=== PATIENT | male | born 1945 | race Caucasian/White ===

== ENCOUNTER 2020-05-24 11:55 | Inpatient (IN) ==
[2020-05-24] MEDS ORDERED: Calcium Carb (TUMS) 500 mg CHEW TAB PO PRN (17:45)
[2020-05-24] MEDS ORDERED: Dextrose 50% Syringe 50 ml 25 GM/50 ML SYRINGE IV PUSH PRN (17:52)
[2020-05-24] MEDS ORDERED: Dexamethasone IV 4 MG/ML VIAL 1 ml VIAL IV SLOW PU ONE (20:00)
[2020-05-24] MEDS: Heparin 5000 UNITS/ML 1 mL VIAL SUBCUT SCH (21:10)
[2020-05-24] MEDS ORDERED: Dexamethasone IV 4 MG/ML VIAL 1 ml VIAL IV SLOW PU SCH (22:00)
[2020-05-25] MEDS: Heparin 5000 UNITS/ML 1 mL VIAL SUBCUT SCH ×3 (05:42→22:32)
[2020-05-25 06:10] LABS: ABS Basophils 0.1 10^3/ul (0-0.2); ABS Lymphocytes 0.8 10^3/ul (1.0-4.8); ABS Neutrophils 12.3 10^3/ul (1.5-7.7); Hematocrit 31 % (42-52); Lymphocyte % 5.9 %; Mean Corpuscular HGB Conc 32 g/dL (31-36); Mean Corpuscular Hemoglobin 28 pg (27-31); Mean Corpuscular Volume 86 fL (80-94); Mean Platelet Volume 6.4 fL (7.4-10.4); Platelet Count 583 10^3/uL (150-450); Red Blood Count 3.64 10^6 /uL (4.18-5.48); Red Cell Distribution Width 16 % (10-15); White Blood Count 14.1 10^3/uL (3.5-10.8)
[2020-05-25 06:25] LABS: Activated Partial Thrombo Time 28.3 seconds (26.0-38.0); INR 1.23 (0.82-1.09)
[2020-05-25 06:28] LABS: Calcium 8.5 mg/dL (8.6-10.3); EGFR African American 87.7 (>60); EGFR Non-African American 72.5 (>60); Potassium 3.7 mmol/L (3.5-5.0)
[2020-05-25] MEDS: Dexamethasone IV 4 MG/ML VIAL 1 ml VIAL IV SLOW PU SCH ×3 (07:52→22:34)
[2020-05-25 12:18] LABS: Urine Appearance Clear; Urine Bilirubin Negative (Negative); Urine Blood Negative (Negative); Urine Color Yellow; Urine Glucose Negative (Negative); Urine Ketones Negative (Negative); Urine Nitrite Negative (Negative); Urine Protein Negative (Negative); Urine Specific Gravity 1.019 (1.010-1.030); Urine Urobilinogen Negative (Negative)
[2020-05-25] MEDS ORDERED: Albuterol 2.5mg/3 ml (0.083%) NEB.SOLN INH SCH (15:00)
[2020-05-25] MEDS ORDERED: Albuterol 2.5mg/3 ml (0.083%) NEB.SOLN INH PRN (16:26)
[2020-05-25] MEDS ORDERED: Insulin GLARGINE 100 un/ml 10 ml VIAL SUBCUT SCH (21:00)
[2020-05-26] MEDS: Heparin 5000 UNITS/ML 1 mL VIAL SUBCUT SCH ×3 (05:39→21:47)
[2020-05-26 08:10] LABS: Hematocrit 34 % (42-52); Hemoglobin 10.8 g/dL (14.0-18.0); Mean Corpuscular HGB Conc 32 g/dL (31-36); Mean Corpuscular Hemoglobin 27 pg (27-31); Mean Corpuscular Volume 86 fL (80-94); Mean Platelet Volume 6.5 fL (7.4-10.4); Platelet Count 625 10^3/uL (150-450); Red Blood Count 3.95 10^6 /uL (4.18-5.48); Red Cell Distribution Width 16 % (10-15); White Blood Count 14.3 10^3/uL (3.5-10.8)
[2020-05-26 08:12] LABS: ABS Lymphocytes 1.9 10^3/ul (1.0-4.8); ABS Monocytes 1.3 10^3/ul (0-0.8); Eosinophil % 0.3 %; Lymphocyte % 13.5 %
[2020-05-26 08:26] LABS: C Reactive Protein 26.99 mg/L (<8.01); Calcium 8.6 mg/dL (8.6-10.3); EGFR African American 87.7 (>60); EGFR Non-African American 72.5 (>60); Potassium 4.1 mmol/L (3.5-5.0)
[2020-05-26] MEDS: Pantoprazole VIAL 40 MG VIAL IV SCH (08:39)
[2020-05-26 09:12] LABS: INR 1.18 (0.82-1.09)
[2020-05-26] MEDS: ceFAZolin 1 GM ADVAN 1 GM in NS 0.9% 50 ML 50 ML IVPB SCH (16:56)
[2020-05-26] MEDS ORDERED: Insulin GLARGINE 100 un/ml 10 ml VIAL SUBCUT SCH (21:00)
[2020-05-26] MEDS: Insulin GLARGINE 100 un/ml 10 ml VIAL SUBCUT SCH (21:46)
[2020-05-27] MEDS: ceFAZolin 1 GM ADVAN 1 GM in NS 0.9% 50 ML 50 ML IVPB SCH ×2 (01:03→10:49)
[2020-05-27] MEDS: Pantoprazole VIAL 40 MG VIAL IV SCH ×2 (10:50→13:06)
[2020-05-27] MEDS ORDERED: Clindamycin 900 MG/D5W BAG 900 MG/50 ML BAG IVPB ONE (12:00)
[2020-05-27] MEDS ORDERED: Naloxone 0.4 mg VIAL 0.4 mg/ml 1 ml VIAL IV PRN (13:08)
[2020-05-27] MEDS ORDERED: fentaNYL 100 mcg/2 ml 50 MCG/ML VIAL IV PRN (13:08)
[2020-05-27] MEDS ORDERED: Ondansetron 4 mg VIAL 2 MG/ML 2 ml VIAL IV PRN (13:08)
[2020-05-27] MEDS ORDERED: HYDROmorphone 1 MG/1 ML SYRINGE IV PRN (13:08)
[2020-05-27] MEDS ORDERED: Regadenoson 0.4 MG/5 ML SYRINGE ONE (14:03)
[2020-05-27] MEDS ORDERED: Vancomycin 1,000 MG VIAL ONE (14:26)
[2020-05-27] MEDS ORDERED: Lidocaine 1% w EPI 1:200,000 SDV 30 ML VIAL ONE (14:26)
[2020-05-27] MEDS ORDERED: Thrombin 5,000 UNITS 1 APPLIC KIT - topical use - TOPICAL ONE (14:26)
[2020-05-27] MEDS ORDERED: Artificial Tear OPHTH.OINT 3.5 GM ONE (14:26)
[2020-05-27] MEDS ORDERED: Bacitracin INJECTION 50,000 UNITS ONE (14:27)
[2020-05-27] MEDS ORDERED: Bacitracin OINTMENT TUBE ONE ×2 (14:27→19:21)
[2020-05-27] MEDS ORDERED: Gelfoam Sponge SIZE 100 SPONGE ONE ×2 (14:27→14:58)
[2020-05-27] MEDS ORDERED: Clindamycin VIAL 150 MG/ML VIAL (600 MG) ONE (19:00)
[2020-05-27 19:47] LABS: Body Fluid Source Synovial Fluid
[2020-05-27] MEDS ORDERED: Morphine 2 MG/ML SYRINGE IV PRN (21:43)
[2020-05-27] MEDS ORDERED: NS 0.9% 1000 ml BAG 1,000 ML IV SCH (21:45)
[2020-05-27 22:35] LABS: Body Fluid Mono 6 %; Body Fluid Other Cells 2
[2020-05-27] MEDS: Insulin GLARGINE 100 un/ml 10 ml VIAL SUBCUT SCH (23:14)
[2020-05-27] MEDS: Dexamethasone IV 4 MG/ML VIAL 1 ml VIAL IV SLOW PU SCH (23:16)
[2020-05-27] MEDS: Acetaminophen IV 1000 MG/100ML IVPB SCH (23:18)
[2020-05-27] MEDS: Calcium/Vitamin D TAB 250/125 TAB PO SCH (23:26)
[2020-05-28] MEDS: Clindamycin 900 MG IVPREMIX- Q8H IVPB SCH ×3 (00:21→17:26)
[2020-05-28] MEDS: Orphenadrine Citrate INJ 30 mg/ml 2 ml VIAL (60 mg) IV SCH ×2 (00:22→10:22)
[2020-05-28] MEDS: Calcium/Vitamin D TAB 250/125 TAB PO SCH ×3 (06:00→21:24)
[2020-05-28] MEDS: Dexamethasone IV 4 MG/ML VIAL 1 ml VIAL IV SLOW PU SCH (06:00)
[2020-05-28 07:11] LABS: ABS Lymphocytes 1.1 10^3/ul (1.0-4.8); ABS Monocytes 0.8 10^3/ul (0-0.8); ABS Neutrophils 17.4 10^3/ul (1.5-7.7); Hematocrit 29 % (42-52); Hemoglobin 9.5 g/dL (14.0-18.0); Lymphocyte % 5.8 %; Mean Corpuscular HGB Conc 32 g/dL (31-36); Mean Corpuscular Hemoglobin 27 pg (27-31); Mean Corpuscular Volume 85 fL (80-94); Mean Platelet Volume 6.1 fL (7.4-10.4); Platelet Count 545 10^3/uL (150-450); Red Blood Count 3.48 10^6 /uL (4.18-5.48); Red Cell Distribution Width 16 % (10-15); White Blood Count 19.4 10^3/uL (3.5-10.8)
[2020-05-28 07:21] LABS: Activated Partial Thrombo Time 25.7 seconds (26.0-38.0); INR 1.16 (0.82-1.09)
[2020-05-28 07:26] LABS: BUN/Creatinine Ratio 27.4 (8-20); EGFR Non-African American 67.7 (>60); Potassium 4.7 mmol/L (3.5-5.0)
[2020-05-28] MEDS: ceFAZolin 1 GM ADVAN 1 GM in NS 0.9% 50 ML 50 ML IVPB SCH (07:34)
[2020-05-28] MEDS: Pantoprazole VIAL 40 MG VIAL IV SCH (08:57)
[2020-05-28] MEDS: Enoxaparin 40 MG/0.4 ML SYR SUBCUT SCH (08:57)
[2020-05-28] MEDS: Polyethylene Glycol 3350 17 GM PACKET PO SCH (08:58)
[2020-05-28] MEDS: Acetaminophen IV 1000 MG/100ML IVPB SCH ×2 (10:22→18:22)
[2020-05-28] MEDS: Insulin GLARGINE 100 un/ml 10 ml VIAL SUBCUT SCH (21:22)
[2020-05-29] MEDS: Clindamycin 900 MG IVPREMIX- Q8H IVPB SCH ×3 (00:16→16:08)
[2020-05-29] MEDS: Calcium/Vitamin D TAB 250/125 TAB PO SCH ×3 (05:05→20:54)
[2020-05-29 07:00] LABS: Activated Partial Thrombo Time 27.2 seconds (26.0-38.0); INR 1.09 (0.82-1.09)
[2020-05-29 07:01] LABS: Hematocrit 30 % (42-52); Hemoglobin 9.4 g/dL (14.0-18.0); Mean Corpuscular HGB Conc 32 g/dL (31-36); Mean Corpuscular Hemoglobin 27 pg (27-31); Mean Corpuscular Volume 86 fL (80-94); Mean Platelet Volume 6.6 fL (7.4-10.4); Platelet Count 539 10^3/uL (150-450); Red Blood Count 3.46 10^6 /uL (4.18-5.48); Red Cell Distribution Width 16 % (10-15)
[2020-05-29 07:09] LABS: EGFR African American 87.7 (>60); EGFR Non-African American 72.5 (>60); Potassium 3.6 mmol/L (3.5-5.0)
[2020-05-29] MEDS: Pantoprazole VIAL 40 MG VIAL IV SCH (08:18)
[2020-05-29] MEDS: Enoxaparin 40 MG/0.4 ML SYR SUBCUT SCH (08:19)
[2020-05-29] MEDS: Polyethylene Glycol 3350 17 GM PACKET PO SCH (08:20)
[2020-05-29 09:16] LABS: ABS Eosinophils 0.1 10^3/ul (0-0.6); ABS Lymphocytes 1.8 10^3/ul (1.0-4.8); ABS Monocytes 1.3 10^3/ul (0-0.8); ABS Neutrophils 13.7 10^3/ul (1.5-7.7); Eosinophil % 0.9 %; Lymphocyte % 10.6 %
[2020-05-29] MEDS: Insulin GLARGINE 100 un/ml 10 ml VIAL SUBCUT SCH (20:57)
[2020-05-30] MEDS: Clindamycin 900 MG IVPREMIX- Q8H IVPB SCH ×3 (00:45→16:33)
[2020-05-30] MEDS: Calcium/Vitamin D TAB 250/125 TAB PO SCH ×3 (05:29→21:28)
[2020-05-30 06:22] LABS: ABS Eosinophils 0.3 10^3/ul (0-0.6); ABS Lymphocytes 1.6 10^3/ul (1.0-4.8); ABS Monocytes 1.3 10^3/ul (0-0.8); ABS Neutrophils 12.4 10^3/ul (1.5-7.7); Eosinophil % 1.6 %; Hematocrit 28 % (42-52); Hemoglobin 9.2 g/dL (14.0-18.0); Lymphocyte % 10.1 %; Mean Corpuscular HGB Conc 33 g/dL (31-36); Mean Corpuscular Hemoglobin 28 pg (27-31); Mean Corpuscular Volume 85 fL (80-94); Mean Platelet Volume 6.3 fL (7.4-10.4); Platelet Count 525 10^3/uL (150-450); Red Cell Distribution Width 17 % (10-15); White Blood Count 15.6 10^3/uL (3.5-10.8)
[2020-05-30 06:30] LABS: Activated Partial Thrombo Time 28.5 seconds (26.0-38.0); INR 1.11 (0.82-1.09)
[2020-05-30 06:38] LABS: BUN/Creatinine Ratio 21.4 (8-20); Calcium 8.3 mg/dL (8.6-10.3); EGFR African American 132.3 (>60); EGFR Non-African American 109.4 (>60); Potassium 3.2 mmol/L (3.5-5.0)
[2020-05-30] MEDS: Enoxaparin 40 MG/0.4 ML SYR SUBCUT SCH (08:22)
[2020-05-30] MEDS: Polyethylene Glycol 3350 17 GM PACKET PO SCH (08:23)
[2020-05-30] MEDS ORDERED: KCL 20 MEQ/100 ML IVPREMIX 20 MEQ/100 ML BAG IV ONE (08:26)
[2020-05-30] MEDS ORDERED: Potassium Chlor 20 meq TAB.ER PO ONE (08:26)
[2020-05-30] MEDS: Insulin GLARGINE 100 un/ml 10 ml VIAL SUBCUT SCH (21:57)
[2020-05-30] MEDS: CMCS: Glimepiride 2 mg TAB (NF) PO SCH (21:57)
[2020-05-31] MEDS: Clindamycin 900 MG IVPREMIX- Q8H IVPB SCH ×2 (00:41→08:18)
[2020-05-31] MEDS: Calcium/Vitamin D TAB 250/125 TAB PO SCH ×3 (04:27→21:05)
[2020-05-31 05:58] LABS: Hematocrit 27 % (42-52); Hemoglobin 8.7 g/dL (14.0-18.0); Mean Corpuscular HGB Conc 32 g/dL (31-36); Mean Corpuscular Hemoglobin 27 pg (27-31); Mean Corpuscular Volume 86 fL (80-94); Mean Platelet Volume 6.4 fL (7.4-10.4); Platelet Count 470 10^3/uL (150-450); Red Cell Distribution Width 17 % (10-15); White Blood Count 16.2 10^3/uL (3.5-10.8)
[2020-05-31 06:04] LABS: ABS Eosinophils 0.3 10^3/ul (0-0.6); ABS Lymphocytes 1.5 10^3/ul (1.0-4.8); ABS Monocytes 1.8 10^3/ul (0-0.8); ABS Neutrophils 12.6 10^3/ul (1.5-7.7); Eosinophil % 1.7 %; Lymphocyte % 9.5 %
[2020-05-31] MEDS: Enoxaparin 40 MG/0.4 ML SYR SUBCUT SCH (08:19)
[2020-05-31] MEDS: CMCS: Glimepiride 2 mg TAB (NF) PO SCH ×2 (08:20→21:07)
[2020-05-31] MEDS: Polyethylene Glycol 3350 17 GM PACKET PO SCH (08:20)
[2020-05-31 09:23] LABS: BUN/Creatinine Ratio 12.1 (8-20); C Reactive Protein 207.83 mg/L (<8.01); Calcium 8.2 mg/dL (8.6-10.3); EGFR African American 88.7 (>60); EGFR Non-African American 73.3 (>60); Potassium 3.3 mmol/L (3.5-5.0)
[2020-05-31 12:03] LABS: C Reactive Protein 46.15 mg/L (<8.01)
[2020-05-31] MEDS ORDERED: Potassium Chlor 20 meq TAB.ER PO ONE (12:07)
[2020-05-31] MEDS: Insulin GLARGINE 100 un/ml 10 ml VIAL SUBCUT SCH (21:06)
[2020-06-01] MEDS: Calcium/Vitamin D TAB 250/125 TAB PO SCH ×3 (05:15→20:50)
[2020-06-01] MEDS: Enoxaparin 40 MG/0.4 ML SYR SUBCUT SCH (08:47)
[2020-06-01] MEDS: Sulfamethox/Trimethoprim DS TAB 800/160 mg PO SCH ×2 (08:47→20:50)
[2020-06-01] MEDS: CMCS: Glimepiride 2 mg TAB (NF) PO SCH ×2 (08:47→20:59)
[2020-06-01] MEDS: Polyethylene Glycol 3350 17 GM PACKET PO SCH (08:48)
[2020-06-01 10:28] LABS: Hematocrit 28 % (42-52); Mean Corpuscular HGB Conc 33 g/dL (31-36); Mean Corpuscular Hemoglobin 28 pg (27-31); Mean Corpuscular Volume 85 fL (80-94); Mean Platelet Volume 6.6 fL (7.4-10.4); Platelet Count 592 10^3/uL (150-450); Red Blood Count 3.24 10^6 /uL (4.18-5.48); Red Cell Distribution Width 17 % (10-15); White Blood Count 20.7 10^3/uL (3.5-10.8)
[2020-06-01 10:47] LABS: C Reactive Protein 255.57 mg/L (<8.01); Calcium 8.5 mg/dL (8.6-10.3); EGFR African American 96.5 (>60); EGFR Non-African American 79.8 (>60); Potassium 3.9 mmol/L (3.5-5.0)
[2020-06-01 11:34] LABS: ABS Basophils 0.1 10^3/ul (0-0.2); ABS Eosinophils 0.1 10^3/ul (0-0.6); ABS Lymphocytes 2.3 10^3/ul (1.0-4.8); ABS Neutrophils 16.3 10^3/ul (1.5-7.7); Eosinophil % 0.7 %; Lymphocyte % 11.2 %
[2020-06-01 14:35] LABS: Urine Appearance Clear; Urine Bilirubin Negative (Negative); Urine Blood 1+ (Negative); Urine Color Yellow; Urine Glucose Negative (Negative); Urine Ketones Negative (Negative); Urine Nitrite Negative (Negative); Urine Protein 1+(30 mg/dL) (Negative); Urine Specific Gravity 1.018 (1.010-1.030); Urine Urobilinogen Negative (Negative)
[2020-06-01 14:38] LABS: Urine Bacteria Absent (Absent); Urine Red Blood Cell Trace(0-2/hpf) (Absent); Urine White Blood Cell Absent (Absent)
[2020-06-01] MEDS: Insulin GLARGINE 100 un/ml 10 ml VIAL SUBCUT SCH (20:50)
[2020-06-02] MEDS: Calcium/Vitamin D TAB 250/125 TAB PO SCH ×3 (04:19→19:39)
[2020-06-02 04:37] LABS: Hematocrit 25 % (42-52); Mean Corpuscular HGB Conc 32 g/dL (31-36); Mean Corpuscular Hemoglobin 28 pg (27-31); Mean Corpuscular Volume 86 fL (80-94); Mean Platelet Volume 6.4 fL (7.4-10.4); Platelet Count 481 10^3/uL (150-450); Red Blood Count 2.89 10^6 /uL (4.18-5.48); Red Cell Distribution Width 16 % (10-15); White Blood Count 16.1 10^3/uL (3.5-10.8)
[2020-06-02 04:39] LABS: ABS Basophils 0.1 10^3/ul (0-0.2); ABS Eosinophils 0.2 10^3/ul (0-0.6); ABS Neutrophils 11.9 10^3/ul (1.5-7.7); Eosinophil % 1.2 %; Lymphocyte % 12.1 %
[2020-06-02 04:59] LABS: C Reactive Protein 259.22 mg/L (<8.01); Calcium 8.4 mg/dL (8.6-10.3); EGFR African American 87.7 (>60); EGFR Non-African American 72.5 (>60); Potassium 3.5 mmol/L (3.5-5.0)
[2020-06-02] MEDS: Polyethylene Glycol 3350 17 GM PACKET PO SCH (07:33)
[2020-06-02] MEDS: Sulfamethox/Trimethoprim DS TAB 800/160 mg PO SCH (08:07)
[2020-06-02] MEDS: Enoxaparin 40 MG/0.4 ML SYR SUBCUT SCH (08:08)
[2020-06-02] MEDS: CMCS: Glimepiride 2 mg TAB (NF) PO SCH ×2 (08:10→19:39)
[2020-06-02] MEDS: Insulin GLARGINE 100 un/ml 10 ml VIAL SUBCUT SCH (19:53)
[2020-06-03] MEDS: Calcium/Vitamin D TAB 250/125 TAB PO SCH (04:46)
[2020-06-03] MEDS: Polyethylene Glycol 3350 17 GM PACKET PO SCH (08:01)
[2020-06-03] MEDS: Enoxaparin 40 MG/0.4 ML SYR SUBCUT SCH (08:33)
[2020-06-03] MEDS: CMCS: Glimepiride 2 mg TAB (NF) PO SCH (08:33)
[2020-06-03 09:57] LABS: Hematocrit 25 % (42-52); Hemoglobin 8.2 g/dL (14.0-18.0); Mean Corpuscular HGB Conc 33 g/dL (31-36); Mean Corpuscular Hemoglobin 28 pg (27-31); Mean Corpuscular Volume 85 fL (80-94); Mean Platelet Volume 6.3 fL (7.4-10.4); Platelet Count 562 10^3/uL (150-450); Red Blood Count 2.92 10^6 /uL (4.18-5.48); Red Cell Distribution Width 16 % (10-15); White Blood Count 13.1 10^3/uL (3.5-10.8)
[2020-06-03 10:14] LABS: Anion Gap 9 mmol/L (2-11); Blood Urea Nitrogen 14 mg/dL (6-24); C Reactive Protein 184.56 mg/L (<8.01); CO2 Carbon Dioxide 24 mmol/L (22-32); Calcium 8.6 mg/dL (8.6-10.3); Chloride 100 mmol/L (101-111); EGFR African American 80.2 (>60); EGFR Non-African American 66.3 (>60); Glucose 106 mg/dL (70-100); Potassium 3.6 mmol/L (3.5-5.0); Sodium 133 mmol/L (135-145)
[2020-06-03 11:18] VITALS: BP 124/49
[2020-06-03 11:24] LABS: ABS Basophils 0.1 10^3/ul (0-0.2); ABS Eosinophils 0.1 10^3/ul (0-0.6); ABS Lymphocytes 0.9 10^3/ul (1.0-4.8); ABS Monocytes 1.4 10^3/ul (0-0.8); ABS Neutrophils 10.6 10^3/ul (1.5-7.7); Lymphocyte % 7.2 %
[2020-06-03 15:32] LABS: Iron 21 ug/dL (50-212); Transferrin 172 mg/dL (203-362)
[2020-06-03 15:33] LABS: % Iron Saturation 9 % (15-55); Total Iron Binding Capacity 241 mcg/dL (250-450); Unsaturated Iron Binding < 226 ug/dL
[2020-06-03 16:31] LABS: Ferritin 474.2 ng/mL (24-336)
[2020-06-03 16:35] LABS: Folate 15.27 ng/mL (>3.99)
[2020-06-06 13:12] LABS: Albumin 1.9 g/dL (3.4-4.7); Albumin/Globulin Ratio 0.56; Gamma Globulin 0.7 g/dL (0.6-1.6); Total Protein(PEP) 5.4 g/dL (6.3 - 7.9)
== END 2020-06-03 11:54 | DRG 29 ==
LOC: SSU 15:27
PROVIDERS: ADMIT Internal Medicine; ATTEND Hospitalist

== ENCOUNTER 2021-02-10 06:02 | Inpatient (IN) ==
[~2021-02-10 06:02] MED LIST: Buffered Lidocaine 1% SYRIN 1 ml INTRADERM ONE; Lactated Ringers 1000 ml BAG 1,000 ML IV SCH
[2021-02-10 06:52] LABS: Rapid COVID-19 Molecular Undetected (Undetected)
[2021-02-10] MEDS ORDERED: Vancomycin 1,000 MG VIAL ONE ×2 (07:15→08:19)
[2021-02-10] MEDS ORDERED: Bacitracin OINTMENT TUBE ONE (07:15)
[2021-02-10] MEDS ORDERED: ceFAZolin VIAL VIAL ONE ×2 (07:15→08:19)
[2021-02-10] MEDS ORDERED: Bupivacaine 0.5% SDV PF 30ML VIAL ONE (07:15)
[2021-02-10] MEDS ORDERED: Clindamycin 900 MG/D5W BAG 900 MG/50 ML BAG IVPB ONE (07:17)
[2021-02-10] MEDS ORDERED: fentaNYL 250 mcg/5 ml 50 MCG/ML 5 ml VIAL (250 MCG) ONE (07:18)
[2021-02-10] MEDS ORDERED: Propofol 10 MG/ML 20 ML BTL ONE (07:18)
[2021-02-10] MEDS ORDERED: Phenylephrine 40 mcg/mL 10mL (400mcg) SYRINGE ONE (07:18)
[2021-02-10] MEDS ORDERED: Phenylephrine IV 10 MG/ML 1 ml VIAL ONE (07:18)
[2021-02-10] MEDS ORDERED: Rocuronium 50 mg VIAL 10 mg/ml 5 ml VIAL (50 mg) ONE (07:18)
[2021-02-10] MEDS ORDERED: Thrombin 5,000 UNITS 1 APPLIC KIT - topical use - TOPICAL ONE (09:26)
[2021-02-10] MEDS ORDERED: Sugammadex 500 MG/5 ML 5 ml VIAL IV PUSH ONE (10:11)
[2021-02-10] MEDS ORDERED: Ondansetron 4 mg VIAL 2 MG/ML 2 ml VIAL IV PRN (10:50)
[2021-02-10] MEDS ORDERED: Polyethylene Glycol 3350 17 GM PACKET PO PRN (10:55)
[2021-02-10] MEDS ORDERED: fentaNYL 100 mcg/2 ml 50 MCG/ML VIAL IV PRN (10:58)
[2021-02-10] MEDS ORDERED: Naloxone 0.4 mg VIAL 0.4 mg/ml 1 ml VIAL IV PRN (10:58)
[2021-02-10] MEDS ORDERED: Acetaminophen IV 1 GM/100ML 100 ML IV ONE ×2 (10:58→11:01)
[2021-02-10] MEDS ORDERED: Dextrose 50% Syringe 50 ml 25 GM/50 ML SYRINGE IV PUSH PRN (11:04)
[2021-02-10] MEDS: NS 0.9% 1000 ml BAG 1,000 ML IV SCH (12:10)
[2021-02-10] MEDS: Morphine 2 MG/ML SYRINGE IV PRN (12:12)
[2021-02-10] MEDS: Clindamycin 900 MG/D5W BAG 900 MG/50 ML BAG IVPB SCH (17:15)
[2021-02-10] MEDS: Acetaminophen IV 1 GM/100ML 100 ML IV SCH (20:51)
[2021-02-10] MEDS ORDERED: Glimepiride 2 mg TAB (NF) PO SCH (21:00)
[2021-02-10] MEDS: Magnesium Hydroxide LIQ 30 ML UDC PO SCH (21:02)
[2021-02-11] MEDS: Clindamycin 900 MG/D5W BAG 900 MG/50 ML BAG IVPB SCH ×2 (00:06→09:06)
[2021-02-11] MEDS: NS 0.9% 1000 ml BAG 1,000 ML IV SCH ×2 (02:56→20:13)
[2021-02-11] MEDS: Acetaminophen IV 1 GM/100ML 100 ML IV SCH ×2 (03:43→11:27)
[2021-02-11] MEDS: Morphine 2 MG/ML SYRINGE IV PRN ×2 (03:52→12:46)
[2021-02-11 06:59] LABS: Hematocrit 27 % (42-52); Hemoglobin 8.9 g/dL (14.0-18.0); Mean Corpuscular HGB Conc 33 g/dL (31-36); Mean Corpuscular Hemoglobin 28 pg (27-31); Mean Corpuscular Volume 87 fL (80-94); Mean Platelet Volume 6.3 fL (7.4-10.4); Platelet Count 315 10^3/uL (150-450); Red Blood Count 3.15 10^6 /uL (4.18-5.48); Red Cell Distribution Width 16 % (10-15); White Blood Count 11.1 10^3/uL (3.5-10.8)
[2021-02-11 07:15] LABS: Potassium 3.8 mmol/L (3.5-5.0); eGFR CKD-EPI 47.3 (>60)
[2021-02-11] MEDS ORDERED: Lisinopril/HCTZ 20/25 TAB (NF) PO SCH (09:00)
[2021-02-11] MEDS: CYANOCOBALAMIN 50 MCG PO SCH (09:10)
[2021-02-11] MEDS: Magnesium Hydroxide LIQ 30 ML UDC PO SCH ×2 (09:23→22:00)
[2021-02-11] MEDS: Enoxaparin 40 MG/0.4 ML SYR SUBCUT SCH (09:23)
[2021-02-11] MEDS: Clindamycin 900 MG IVPREMIX- Q8H IVPB SCH (15:52)
[2021-02-12] MEDS: Clindamycin 900 MG IVPREMIX- Q8H IVPB SCH ×3 (00:11→16:15)
[2021-02-12 05:56] LABS: Hematocrit 26 % (42-52); Hemoglobin 8.6 g/dL (14.0-18.0); Mean Corpuscular HGB Conc 33 g/dL (31-36); Mean Corpuscular Hemoglobin 29 pg (27-31); Mean Corpuscular Volume 87 fL (80-94); Mean Platelet Volume 6.3 fL (7.4-10.4); Platelet Count 276 10^3/uL (150-450); Red Blood Count 2.99 10^6 /uL (4.18-5.48); Red Cell Distribution Width 15 % (10-15); White Blood Count 10.5 10^3/uL (3.5-10.8)
[2021-02-12] MEDS: Enoxaparin 40 MG/0.4 ML SYR SUBCUT SCH (08:51)
[2021-02-12] MEDS: Magnesium Hydroxide LIQ 30 ML UDC PO SCH ×2 (08:53→21:09)
[2021-02-12] MEDS: CYANOCOBALAMIN 50 MCG PO SCH (09:09)
[2021-02-13] MEDS: Clindamycin 900 MG IVPREMIX- Q8H IVPB SCH ×2 (00:38→08:03)
[2021-02-13] MEDS: Enoxaparin 40 MG/0.4 ML SYR SUBCUT SCH (08:45)
[2021-02-13] MEDS: CYANOCOBALAMIN 50 MCG PO SCH (10:36)
[2021-02-13] MEDS: Magnesium Hydroxide LIQ 30 ML UDC PO SCH (10:38)
[2021-02-13 11:45] VITALS: BP 128/48
[2021-02-13 15:28] LABS: Rapid COVID-19 Molecular Undetected (Undetected)
== END 2021-02-13 15:25 | DRG 520 ==
LOC: AA 06:02 → SSU 11:50
PROVIDERS: ADMIT Neurological Surgery; ATTEND Neurological Surgery

== ENCOUNTER 2023-10-25 10:28 | Observation (INO) ==
[2023-10-25] MEDS ORDERED: Lidocaine 2% PF 5 ML VIAL ONE (11:39)
[2023-10-25] MEDS ORDERED: Propofol 10 MG/ML 20 ML BTL ONE (11:39)
[2023-10-25] MEDS ORDERED: fentaNYL 100 mcg/2 ml 50 MCG/ML VIAL ONE ×3 (11:39→16:50)
[2023-10-25] MEDS ORDERED: Rocuronium 50 mg VIAL 10 mg/ml 5 ml VIAL (50 mg) ONE (11:39)
[2023-10-25] MEDS: Lactated Ringers 1000 ml BAG 1,000 ML IV SCH ×4 (12:12→18:04)
[2023-10-25] MEDS: Buffered Lidocaine 1% SYRIN 1 ml INTRADERM ONE ×3 (12:12→18:04)
[2023-10-25] MEDS ORDERED: Famotidine IV 10 MG/ML 2 ml VIAL (20 mg) ONE (12:49)
[2023-10-25] MEDS ORDERED: ceFAZolin 2 GM in NS PREMIX 2 GM/100 ML BAG IVPB ONE (12:49)
[2023-10-25] MEDS ORDERED: Chlorhexidine MOUTHWASH 0.12% 15 ML UDC ONE (12:56)
[2023-10-25] MEDS: Famotidine IV 10 MG/ML 2 ml VIAL (20 mg) IV ONE (13:02)
[2023-10-25 13:07] LABS: Rapid COVID-19 Molecular Detected (Undetected)
[2023-10-25] MEDS ORDERED: ceFAZolin VIAL VIAL ONE (13:17)
[2023-10-25] MEDS ORDERED: Thrombin 5,000 UNITS 1 APPLIC KIT - topical use - TOPICAL ONE (13:17)
[2023-10-25] MEDS ORDERED: Lidocaine 1% w EPI 1:200,000 SDV 30 ML VIAL ONE (13:17)
[2023-10-25] MEDS ORDERED: Phenylephrine 40 mcg/mL 10mL (400mcg) SYRINGE ONE (14:06)
[2023-10-25] MEDS ORDERED: Phenylephrine IV 10 MG/ML 1 ml VIAL ONE (14:21)
[2023-10-25] MEDS ORDERED: Atropine 1 MG/ML INJ 1 ML VIAL ONE (15:31)
[2023-10-25] MEDS ORDERED: Ondansetron 4 mg VIAL 2 MG/ML 2 ml VIAL ONE (15:39)
[2023-10-25] MEDS ORDERED: Dexamethasone IV 4 MG/ML VIAL 1 ml VIAL ONE (15:39)
[2023-10-25] MEDS ORDERED: Ondansetron 4 mg VIAL 2 MG/ML 2 ml VIAL IV PRN ×2 (16:28→16:51)
[2023-10-25] MEDS ORDERED: Morphine 2 MG/ML SYRINGE IV PRN (16:28)
[2023-10-25] MEDS ORDERED: Phenol 1.4% Throat Spray BTL MT PRN (16:28)
[2023-10-25] MEDS ORDERED: Calcium Carb (TUMS) 500 mg CHEW TAB PO PRN (16:28)
[2023-10-25] MEDS ORDERED: Benzocaine/Menthol LOZ MT PRN (16:28)
[2023-10-25] MEDS ORDERED: Dextran 70/Hypromellose Tears Eye Drops 15 ml BTL (for Artificials Tears) BOTH EYES PRN (16:28)
[2023-10-25] MEDS ORDERED: HYDROcodone/ACETAMIN 5/325 mg TAB PO PRN ×2 (16:28)
[2023-10-25] MEDS ORDERED: Metoclopramide 5 MG/ML VIAL (10 mg) IV PRN (16:51)
[2023-10-25] MEDS ORDERED: Naloxone 0.4 mg VIAL 0.4 mg/ml 1 ml VIAL IV PRN (16:51)
[2023-10-25] MEDS: fentaNYL 100 mcg/2 ml 50 MCG/ML VIAL IV PRN (16:55)
[2023-10-25] MEDS ORDERED: NS 0.45% 1000 ml BAG 1,000 ML IV SCH (17:00)
[2023-10-25] MEDS: Acetaminophen IV 1 GM/100ML 1,000 MG/100 ML BAG IV ONE (18:03)
[2023-10-25] MEDS: Scopolamine 1 mg/72hr PATCH TRANSDERM ONE (18:04)
[2023-10-25] MEDS: Insulin GLARGINE 100 un/ml 10 ml VIAL SUBCUT SCH (20:40)
[2023-10-26] MEDS: Nystatin TOP POWDER 15 GM BTL TOPICAL PRN (09:44)
[2023-10-26] MEDS: Insulin GLARGINE 100 un/ml 10 ml VIAL SUBCUT ONE (23:44)
[2023-10-27 10:20] VITALS: BP 134/56
[2023-10-27] MEDS ORDERED: Insulin GLARGINE 100 un/ml 10 ml VIAL SUBCUT SCH (21:00)
== END 2023-10-27 11:45 ==
LOC: OR 10:28 → SSU 10:28
PROVIDERS: ADMIT Neurological Surgery; ATTEND Neurological Surgery